=== PATIENT | female | born 1975 | race Caucasian/White ===

== ENCOUNTER 2017-06-24 08:22 | Emergency (ER) | payer OTHER ==
[~2017-06-24] VITALS: Ht 167.6 cm; Wt 128.2 kg
[~2017-06-24 08:22] MED LIST: DICLOFENAC SOD100 MG PO; LEXAPRO20 MG PO; MOBIC15 MG PO; MOBIC7.5 MG PO; MOTRIN800 MG PO; PERCOCET 5/31 TABLET PO; VYVANSE50 MG PO; WELLBUTRIN SR150 MG PO
[2017-06-24] MEDS ORDERED: PERCOCET 5/31 TABLET PO (09:55)
[2017-06-24 10:17] VITALS: BP 118/60
== END 2017-06-24 10:20 | disposition home or self-care (01) ==
LOC: EME 08:22
DX: S80.01XA Contusion of right knee, initial encounter (principal); W19.XXXA Unspecified fall, initial encounter; Y93.01 Activity, walking, marching and hiking; M17.0 Bilateral primary osteoarthritis of knee; Z88.5 Allergy status to narcotic agent
CPT/HCPCS: 73564; 99281; 99284; J1885